=== PATIENT | female | born 1975 | race Caucasian/White ===

== ENCOUNTER 2019-09-29 11:54 | Emergency (ER) | payer BC, SELFPAY | END 2019-09-29 14:02 | disposition home or self-care (01) | PROVIDERS: Emergency Provider Family Medicine; Family Provider Family Medicine; Visit Provider Family Medicine | DX: K52.9 Noninfective gastroenteritis and colitis, unspecified (principal); A08.4 Viral intestinal infection, unspecified; F17.210 Nicotine dependence, cigarettes, uncomplicated | CPT/HCPCS: 36415; 74177; 80053; 81003; 83690; 85025; 96361; 96374; 96375; 99284; J2270; J2405; J2765; Q9967 ==

== ENCOUNTER 2019-10-01 18:48 | Observation (INO) | payer BC, SELFPAY ==
[2019-10-02] VITALS (15 sets, daily range): BP systolic 100–136; BP diastolic 54–118; PULSE 65–81; RESP 16–20; TEMP 36.6–37.1; O2SAT 94–98
[2019-10-02] MEDS: sodium chloride 0.9% 1,000 ML 125 ML IV (04:27)
--- NOTE | 2019-10-02 05:38 | PC.NURSE ---
sent records request to [facility] at 23:30
[2019-10-02] MEDS: morphine 4 mg/mL SDV 1 mL 2 MG IVP (06:33)
[2019-10-02] MEDS: ondansetron 2 mg/ML SDV 2 mL 4 MG IVP ×2 (06:34→10:13)
--- NOTE | 2019-10-02 07:42 | ANES.PREANES ---
Pre-Anesthetic Assessment Pre-Anesthetic Assessment: Height/Weight: Height 1.6 m Weight 86.999 kg Temp Pulse Resp BP 97.9 F 69 18 100/70 10/02/19 03:16 10/02/19 03:16 10/02/19 06:33 10/02/19 03:16 Proposed Procedure: Operation Date: 10/02/19 09:20 Proposed Procedures p Laparoscopic Cholecystectomy(Not Applicable) - Twin Neri MD Last intake: Intake Last Liquid Date 10/01/19 Last Liquid Time 00:00 Last Solid Date 10/01/19 Last Solid Time 00:00 Exam: Pre-Anes Outpt Exam: alert, oriented x 3, clear to auscultation bilaterally and regular rate & rhythm Airway: Submandibular: WNL Cervical ROM: WNL MP: 2 Anesthetic Plan: ASA status: II Anesthesia: General Risk of > 500 ml blood loss (7ml/kg in children): No Meds/Allergies Current Medications: Current Medications Generic Name Dose Route Start Last Admin Trade Name Freq PRN Reason Stop Dose Admin Sodium Chloride 1,000 mls @ 125 m ls/hr 10/02/19 02:00 10/02/19 04:27 Sodium Chloride 0.9% IV 125 mls/hr .Q8H RYAN Administration Morphine Sulfate 2 mg 10/02/19 01:57 10/02/19 06:33 Morphine IVP 2 mg Q2H PRN Administration SEVERE PAIN Ondansetron HCl 4 mg 10/02/19 01:58 10/02/19 06:34 Zofran IVP 4 mg Q6H PRN Administration NAUSEA AND VOMITI NG Data Anesthesia Labs: Other Labs: Laboratory Results - last 48 hr 10/01/19 10/01/19 17:54 17:54 WBC 9.0 RBC 5.34 H Hgb 17.2 H Hct 50.8 H MCV 95.1 MCH 32.2 MCHC 33.9 RDW 12.7 Plt Count 303 MPV 9.8 Neut % (Auto) 57.7 Lymph % (Auto) 33.7 [place] % (Auto) 5.1 Eos % (Auto) 2.7 Baso % (Auto) 0.6 Neut # (Auto) 5.2 Lymph # (Auto) 3.0 [place] # (Auto) 0.5 Eos # (Auto) 0.2 Baso # (Auto) 0.1 Nucleated RBC % (a uto) 0 Nucleated RBCs # 0.0 Sodium 142 Potassium 3.9 Chloride 104 Carbon Dioxide 24 Anion Gap 17.9 BUN 9 Creatinine 0.5 GFR Calculation 134.7 H Random Glucose 94 Calcium 10.4 H Total Bilirubin 0.2 AST 16 ALT 14 Alkaline Phosphata se 73 Total Protein 8.6 Albumin 5.1 Globulin 3.5 Cardiac Studies: No Data to Display
--- NOTE | 2019-10-02 08:09 | P.HP_ITS ---
Providers/Chief Complaint Admitting Physician: Twin Neri MD Primary Care Provider: Darlene Ann MD Chief Complaint: Right upper quadrant pain nausea and vomiting History of Present Illness Franchesca Grey is a 44 year old female who has been dealing with right upper quadrant pain for the last 6 days. Patient stated the pain was persistent and she was initially seen in the ER where a CT scan of the abdomen pelvis was performed and she suspected to have colitis and sent home on prednisone. She continues have persistent right upper quadrant pain associated nausea and multiple episodes of vomiting especially after eating and therefore an ultrasound was performed at [facility] which showed a 2 cm gallstone. An attempt was made to perform a HIDA scan yesterday but the patient was extremely nauseated. Last night she presented to the ER since she is having severe right upper quadrant pain. Patient denies any fevers chills or jaundice. Review of Systems Const: Denies: fever, chills, change in weight or fatigue Eyes: Denies: change in vision ENMT: Denies: painful swallowing Card: Denies: chest pain Resp: Denies: shortness of breath GI: Denies: abdominal pain or blood in stool : Denies: painful urination Skin/Breast: Denies: rash, nipple discharge or breast mass/lump Neuro: Denies: seizure-like activity Jaron/Lymph: Denies: easy bruising Medications/Allergies Home Medications Medication Instructions Recorded Confirmed Last Taken Type cetirizine 10 mg PO DAILY 10/02/19 10/02/19 10/01/19 History hydrocodone-acetaminophen 1 tab PO Q4H PRN 10/02/19 10/02/19 Unknown History montelukast 10 mg PO DAILY 10/02/19 10/02/19 10/01/19 History ondansetron 4 mg PO Q6H 10/02/19 10/02/19 10/01/19 History pantoprazole 40 mg PO DAILY 10/02/19 10/02/19 10/01/19 History Allergies Allergy/AdvReac Type Severity Reaction Status Date / Time brimonidine Allergy Unknown Verified 10/02/19 01:55 PFSH Acute PFSH: Statuses (acute, chronic, etc) shown below reflect problem list status as previously entered and may not be historically accurate Medical History (Updated 10/02/19 @ 08:21 by Twin Neri MD) Seasonal allergies (Acute) Surgical History (Updated 10/02/19 @ 08:12 by Twin Neri MD) H/O: hysterectomy (Acute) History of (Acute) Family History (Updated 10/02/19 @ 08:13 by Twin Neri MD) Denies family history of Anesthesia complication Bleeding disorder Social History (Updated 10/02/19 @ 08:13 by Twin Neri MD) Smoking and tobacco status: current every day smoker cigarettes Packs smoked per day: 0.5 Alcohol intake: never Substance/Drug Use: never Vitals/I&O/Wt Last Vital Signs Temp 97.8 F 10/02/19 07:50 Pulse 69 10/02/19 07:50 Resp 20 H 10/02/19 07:50 BP 120/77 10/02/19 07:50 Pulse Ox 98 10/02/19 07:50 Weight last 48 hrs Weight 86.999 kg Physical Exam Const: COMMON NORMALS: no apparent distress ORIENTATION/CONSCIOUSNESS: Yes oriented to person, Yes oriented to place and Yes oriented to time HENMT: HEAD & SCALP: normocephalic Eye: GENERAL EYE: normal appearance of both eyes Resp: AUSCULTATION: clear to auscultation bilaterally Cardio: HEART SOUNDS: S1 normal and S2 normal GI: PALPATION: Yes soft, Yes tender Details: RUQ and Yes other (Positive Kennedy sign) Neuro: SENSORIUM/ORIENTATION: Yes oriented to person, Yes oriented to place and Yes oriented to time Skin: COMMON NORMALS: no rashes or lesions noted Data Labs: Other Labs: All Labs last 24 hrs except CBC/BMP 10/01/19 10/01/19 17:54 17:54 RBC 5.34 H MCV 95.1 MCH 32.2 MCHC 33.9 RDW 12.7 MPV 9.8 Neut % (Auto) 57.7 Lymph % (Auto) 33.7 [place] % (Auto) 5.1 Eos % (Auto) 2.7 Baso % (Auto) 0.6 Neut # (Auto) 5.2 Lymph # (Auto) 3.0 [place] # (Auto) 0.5 Eos # (Auto) 0.2 Baso # (Auto) 0.1 Nucleated RBC % (a uto) 0 Nucleated RBCs # 0.0 GFR Calculation 134.7 H Random Glucose 94 Calcium 10.4 H Total Bilirubin 0.2 AST 16 ALT 14 Alkaline Phosphata se 73 Total Protein 8.6 Albumin 5.1 Globulin 3.5 Imaging^: US: My impression: We were unable to obtain a hard copy, patient had a copy of the ultrasound report on her phone which I have reviewed which showed a 2 cm gallstone A&P Assessment and plan (1) Symptomatic cholelithiasis: 44-year-old female with right upper quadrant pain, nausea, vomiting of 1 week duration with a 2 cm gallstone, positive Kennedy sign currently stable with no evidence of peritonitis. Plan for laparoscopic possible open cholecystectomy Procedure, risks, benefits and alternatives have been discussed with the patient who wishes to proceed with surgery. Status: Acute Code(s): K80.20 - Calculus of gallbladder without cholecystitis without obstruction Attestations Medical Necessity Statement*: Symptomatic cholelithiasis Coding Level of Care Code New Pt Acute Entry Level Account Manager for Chg Fwd Patient Type New Exam Problem Focused Medical Decision Making Moderate Complexity Diagnoses Symptomatic cholelithiasis K80.20
[2019-10-02] MEDS: sodium chloride 0.9% 1,000 ML 15 ML IV (08:32)
--- NOTE | 2019-10-02 09:57 | P.OP_ITS ---
Operative Report Post-Operative Note: Date of procedure: 10/02/19 Preop Diagnosis: Symptomatic cholelithiasis Post-op diagnosis: same Post-op Findings: Cholelithiasis Distended gallbladder Procedure Done: Laparoscopic cholecystectomy Specimens removed/disposition: Gallbladder Surgeon: Twin Neri Anesthesia: general Estimated blood loss (mL): 10 Condition: stable Disposition: PACU Operative Report: Procedure: The patient was taken to the operating room and was intubated under general anesthesia. After the antibiotic had been administered, the abdomen was prepped and draped in a sterile manner. Using a #15 blade, a 1 centimeter infraumbilical curvilinear incision was made and using an open Malcom technique the peritoneal cavity was entered. A 10 millimeter port was placed and 15 millimeters of pneumoperitoneum was created. A 10 millimeter, 30 degrees scope was then introduced. Three 5 millimeter ports were placed in the epigastric, midclavicular and the anterior axillary line two fingerbreadths below the costal margin on the right side under the direct visualization. Ratcheted forceps were introduced into the lateral most port and was used to retract the fundus of the gallbladder cephalad and using forceps the infundibulum of the gallbladder was retracted laterally. While grasping the fundus of the gallbladder there was a tear resulting in spillage of bile which was aspirated and suctioned out. Using L-hook cautery the peritoneum overlying the Calot's triangle was opened medially and laterally until the cystic duct and the cystic artery were skeletonized. Dissection was carried along the body of the gallbladder and after ensuring critical view of safety, 4 clips applied on the cystic duct and 3 clips applied on the cystic artery and cut leaving, 3 clips on the remaining portion of the duct and 2 clips on the remaining portion of the artery. The rest of the gallbladder was dissected off the liver using L- hook cautery. There was no bleeding or bile leaking noted from the gallbladder fossa and the clips appeared to be in place. An EndoCatch bag was introduced to remove the gallbladder. All the ports were removed under direct visualization and there was no bleeding noted from the port sites. The fascia of the umbilicus was closed using [id number] 0 Vicryl sutures and the subcutaneous tissue was approximated using 3-0 Vicryl sutures. The skin at all four ports were closed using 4-0 Monocryl and Dermabond. A total of 10 millimeters of 0.5% Marcaine was infiltrated around the port sites. The patient was stable throughout the procedure. 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
[2019-10-02] MEDS: fentaNYL 50 mcg/mL INJ 2mL IVP ×2 (10:10→10:15)
--- NOTE | 2019-10-02 10:11 | PM.DCS ---
Discharge Providers Date of Admission: 10/01/19 18:48 Date of Discharge: 10/02/19 Attending Provider at Admission: Twin Neri MD Attending Provider at Discharge: Twin Neri MD Primary Care Provider: Darlene Ann MD Diagnoses at Discharge Discharge Diagnosis (1) Symptomatic cholelithiasis: Status: Resolved (2) Status post cholecystectomy: Status: Acute Reason for Visit Reason for Visit: Reason For Visit: Right upper quadrant pain nausea and vomiting Hospital Course Hospital Course: The patient was admitted to the hospital overnight. The following morning she underwent laparoscopic cholecystectomy. Her postoperative course was uneventful. At time of discharge she was tolerating a liquid diet, her vital signs are stable and her pain was controlled. Discharge Data Data Completed and Pending: Pending at discharge Category Date Time Status ES surgery / GI i mages Routine Exams 10/02/19 08:52 Ordered Pathology: Surgic al [PTH] Routine Pth 10/02/19 09:35 Ordered Labs from last 24 hours 10/01/19 10/01/19 17:54 17:54 WBC 9.0 RBC 5.34 H Hgb 17.2 H Hct 50.8 H MCV 95.1 MCH 32.2 MCHC 33.9 RDW 12.7 Plt Count 303 MPV 9.8 Neut % (Auto) 57.7 Lymph % (Auto) 33.7 [place] % (Auto) 5.1 Eos % (Auto) 2.7 Baso % (Auto) 0.6 Neut # (Auto) 5.2 Lymph # (Auto) 3.0 [place] # (Auto) 0.5 Eos # (Auto) 0.2 Baso # (Auto) 0.1 Nucleated RBC % (a uto) 0 Nucleated RBCs # 0.0 Sodium 142 Potassium 3.9 Chloride 104 Carbon Dioxide 24 Anion Gap 17.9 BUN 9 Creatinine 0.5 GFR Calculation 134.7 H Random Glucose 94 Calcium 10.4 H Total Bilirubin 0.2 AST 16 ALT 14 Alkaline Phosphata se 73 Total Protein 8.6 Albumin 5.1 Globulin 3.5 Vitals: Last Vital Signs Temp 98.6 F 10/02/19 08:15 Pulse 81 10/02/19 08:15 Resp 20 H 10/02/19 08:15 BP 136/64 10/02/19 08:15 Pulse Ox 96 10/02/19 08:15 Discharge Plan Discharge Patient Disposition: Home, Self-Care Condition: Stable Prescriptions: [place] 5-325 mg tablet 1 tab PO Q6H PRN (Reason: pain) Qty: 20 RF: 0 docusate sodium [Colace] 100 mg capsule 100 mg PO BID Qty: 30 RF: 0 Continued cetirizine 10 mg Tablet 10 mg PO DAILY RF: 0 hydrocodone-acetaminophen 5-325 mg Tablet 1 tab PO Q4H PRN (Reason: Pain (Scale Score 4-6)) RF: 0 montelukast 10 mg Tablet 10 mg PO DAILY RF: 0 ondansetron 4 mg Tablet,Disintegrating 4 mg PO Q6H RF: 0 pantoprazole 40 mg Tablet,Delayed Release (Dr/Ec) 40 mg PO DAILY RF: 0 Discharge Orders: Discharge Order (Routine); Ordered 10/02/19 Ordered By: Twin Neri Referrals: Twin Neri MD [Physician] - 2 weeks Discharge Diet: Advance as tolerated Activity Restrictions/Additional Instructions: 1. Up and walking as tolerated. 2. Ok to shower in 48 hours after surgery. 3. Remove surgical glue dressing in 7-10 days. 4. Do not lift more than 10 pounds. 5. Do not operate heavy machinery or drive while using pain medications. 6. Advised to return to ER or contact my office if there are any signs of infection like, increasing pain, fevers, chills, redness or drainage of pus. Discharge Attestations Time Spent in Discharge Care*: less than 30 min Quality Metrics Clinical Quality Measures During this hospital stay, did patient experience: None Coding Level of Care Code Acute Data Modeling Specialist for [facility] Diagnoses Symptomatic cholelithiasis K80.20 Status post cholecystectomy Z90.49
== END 2019-10-02 12:16 | disposition home or self-care (01) ==
PROVIDERS: Admitting Provider Surgery; Family Provider Family Medicine; PCP Family Medicine; Visit Provider Surgery
PROC: 0FT44ZZ Resection of Gallbladder, Percutaneous Endoscopic Approach (ICD-10-PCS; CPT 47562; principal; 2019-10-02 09:00)
DX: K80.10 Calculus of gallbladder with chronic cholecystitis without obstruction (principal); Z79.891 Long term (current) use of opiate analgesic; F17.210 Nicotine dependence, cigarettes, uncomplicated
CPT/HCPCS: 47562; 36415; 36416; 80053; 85025; 88304; 96365; 96375; 99221; 99283; 99285; G0378; J0690; J1100; J2270; J2405; J2550; J2704; J2710; J3010; J3490; J7030

== ENCOUNTER 2019-11-05 12:41 | Outpatient (CLI) | payer BC, SELFPAY ==
--- NOTE | 2019-11-05 13:07 | MR_ITS ---
WS: [id number] MRI pelvis, noncontrast. HISTORY: Low back pain into hips. Multiplanar, multisequence imaging is performed of the pelvis. COMPARISON: CT pelvis 09/29/2019. Well-distended urinary bladder. Status post hysterectomy. Ovaries are both identified and small calib er with small small cysts. No free fluid in the pelvis. Increased marrow edema in the sacrum involving both sides of the SI joint. There are erosions also. T he largest erosion is along the LEFT ilium measuring 10 mm. Greatest amount of edema within the LEFT sacrum. SI joint disease is very slightly asymmetric, greatest on the LEFT. There is a small amount of edema in the RIGHT greater trochanter. There is increased T2 signal in the gluteus medius and minimus lateral to the RIGHT hip. There is a small amount of marrow edema associa pam with the greater trochanter. These findings are asymmetric to the LEFT hip. Cannot confirm avulsi on fracture. MR/MR pelvis wo con* [id number] IMPRESSION: 1. No pelvic mass. 2. Bilateral sacroiliitis, slightly asymmetric and greatest on the LEFT. Consid er psoriatic arthritis, chronic reactive arthritis or ankylosing spondylitis an d inflammatory bowel disease spondylitis. 3. Mild muscle strain involving the RIGHT gluteus minimum and gluteus medius wi th a small amount of marrow edema in the adjacent RIGHT greater trochanter. No avulsion fracture is identified.
--- NOTE | 2019-11-05 13:07 | MR_ITS ---
WS: [id number] MRI abdomen with and without contrast. HISTORY: Liver mass. COMPARISON: 09/29/[address] 12/23/2011. Multiplanar, multisequence imaging is performed of the abdomen with and without contrast. Normal size liver. On the T2 sequences there is a cystic mass in the LEFT lobe of the liver measuring 2.1 x 2.7 cm. Mass is low signal on the T1 sequences. There is diffuse enhancement on early IV contr ast injection. After several minutes postinjection this mass becomes nearly isointense with the remai cristy liver. Although this mass does not completely fill-in on the delayed imaging this mass was prese nt in 2011 which did show some peripheral nodular enhancement on a chest CT. No increase in size. The remaining liver is negative. No bile duct dilatation. Spleen is normal size. No adrenal mass. The re are small cortical cysts in the LEFT kidney. No solid mass. No ascites or pleural fluid. Heart siz e is normal. MR/MR abdomen wo/w con* [id number] IMPRESSION: 1. Mass in the LEFT lobe of the liver has features of a benign hemangioma. Tobi g-term stability since the chest CT of 11/24/2011. No additional workup necessar y. 2. No bile duct dilatation. 3. No ascites.
== END 2019-11-05 12:42 | disposition home or self-care (01) ==
LOC: RADWPI 12:44
PROVIDERS: Family Provider Family Medicine; PCP Registered Nurse; Visit Provider Registered Nurse
DX: M25.551 Pain in right hip (principal); M54.5 Low back pain; M46.1 Sacroiliitis, not elsewhere classified; S76.811A Strain of other specified muscles, fascia and tendons at thigh level, right thigh, initial encounter; X58.XXXA Exposure to other specified factors, initial encounter
CPT/HCPCS: 72195; 74183; A9579

== ENCOUNTER → 2020-01-22 11:32 | Outpatient (BNVA) | payer BC, SELFPAY | PROVIDERS: Family Provider Family Medicine; PCP Registered Nurse; Visit Provider Internal Medicine Rheumatology | DX: G89.29 Other chronic pain (principal); M46.90 Unspecified inflammatory spondylopathy, site unspecified; R76.8 Other specified abnormal immunological findings in serum; Z79.899 Other long term (current) drug therapy; M46.1 Sacroiliitis, not elsewhere classified; F17.210 Nicotine dependence, cigarettes, uncomplicated | CPT/HCPCS: 36415; 80076; 81001; 82565; 82570; 84156; 85025; 85651; 86140; 86160; 86812; 99204 ==

== ENCOUNTER 2021-06-28 10:50 | Outpatient (CLI) | payer OTHER, SELFPAY ==
--- NOTE | 2021-06-28 11:23 | MR_ITS ---
WS: [id number] INDICATION: Ring finger pain for 2 months TECHNIQUE: MRI of the right hand without gadolinium enhancement. Axial T1 and T2 coronal 3-D FSPGR T1 STIR sagittal T2 FINDINGS: Normal anatomic alignment. Normal bone marrow signal involving the metacarpals. Normal MCP joints. Phalanges are normal in appearance. Normal PIP and DIP joints. In particular, the fourth prox imal, mid and distal phalanx are normal in appearance. No evidence of cystic or solid mass. Extensor and flexor compartment tendons are normal in appearance. Normal visualized carpal tunnel. Partially visualized carpal bones are normal in appearance. Normal i nterosseous muscles. IMPRESSION: 1. Fourth phalanx is normal in appearance. Normal bone marrow signal 2. No evidence of cystic or solid lesions. Normal extensor and flexor compartment tendons. 3. Metacarpals and MCP joints are normal in appearance. 4. No acute findings.
== END 2021-06-28 10:51 | disposition home or self-care (01) ==
PROVIDERS: PCP Nurse Practitioner Family; Visit Provider Nurse Practitioner Family
DX: M79.644 Pain in right finger(s) (principal); M25.649 Stiffness of unspecified hand, not elsewhere classified; M79.89 Other specified soft tissue disorders
CPT/HCPCS: 73218